=== PATIENT | female | born 1940 | race Caucasian/White ===

== ENCOUNTER 2018-03-31 08:58 | Outpatient (CLI) | payer MEDICARE | END 2018-03-31 08:59 | disposition home or self-care (01) | LOC: BICMAMMO 08:58 | PROVIDERS: ATTEND Family Medicine | DX: Z12.31 Encounter for screening mammogram for malignant neoplasm of breast (principal); Z80.3 Family history of malignant neoplasm of breast; R92.1 Mammographic calcification found on diagnostic imaging of breast | CPT/HCPCS: 77063; 77067 ==

== ENCOUNTER 2022-01-23 08:51 | Inpatient (IN) | payer MEDICARE ==
[2022-01-23 09:40] LABS: Bilirubin Negative (Negative); Blood, Urine Negative (Negative); Clarity Clear (Clear); Glucose, Urine (Dipstick) Normal (Negative); Ketone, Urine Negative (Negative); Leukocyte Negative Leu/uL (Negative); Nitrite Negative (Negative); Protein, Urine (Dipstick) Negative (Neg-Trace); Specific Gravity, Urine 1.013 (1.002-1.036); Urobilinogen Normal mg/dL (Less than 2)
[2022-01-23 09:42] LABS: #Lymphocytes 0.8 thou/uL (1.20-3.40); #Monocytes 1.5 thou/uL (0.11-0.59); #Neutrophils 9.4 thou/uL (1.40-6.50); %Basophils 0.1 % (0.0-1.0); %Eosinophils 0.1 % (0.0-10.0); %Lymphocytes 6.9 % (21.0-51.0); %Neutrophils 79.8 % (42.0-75.0); Hemoglobin 12.6 g/dL (12.0-16.0); Mean Corpuscular Hemoglobin 31.4 pg (27.0-31.0); Mean Corpuscular Volume 92.2 fL (78.0-98.0); Mean Platelet Volume 7.4 fL (7.4-10.4); Platelet Count 238 thou/uL (130-400); RBC Distribution Width 11.4 % (11.5-14.5); Red Blood Cell (RBC) Count 4.03 mill/uL (4.20-5.40); White Blood Cell (WBC) Count 11.8 thou/uL (4.8-10.8)
[2022-01-23 10:04] LABS: ALT (SGPT) 19 U/L (8-55); AST (SGOT) 39 U/L (5-34); Albumin 4.5 g/dL (3.4-4.8); Alkaline Phosphatase 87 U/L (40-110); Anion Gap 14 mmol/L (10-20); BUN (Urea Nitrogen) 15 mg/dL (9.8-20.1); Bilirubin, Total 0.7 mg/dL (0.2-1.2); CK (CPK) 1493 U/L (29-168); Calc. Creatinine Clearance 0 mL/min (70-130); Calcium 9.8 mg/dL (7.8-10.44); Carbon Dioxide 30 mmol/L (23-31); Chloride 86 mmol/L (98-107); Estimated GFR 67; Globulin 2.6 g/dL (2.4-3.5); Glucose 115 mg/dL (83-110); Potassium 3.2 mmol/L (3.5-5.1); Protein, Total 7.1 g/dL (5.8-8.1); Sodium 127 mmol/L (136-145)
[2022-01-23] MEDS ORDERED: Potassium Chloride 20 MEQ TAB ONE (10:29)
[2022-01-23 11:38] LABS: SARS-CoV-2 NAA Rapid Test Not Detected (NotDetected)
[2022-01-23] MEDS ORDERED: hydrALAZINE 20 MG/ML VIAL SLOW IVP PRN (12:53)
[2022-01-23] MEDS ORDERED: Acetaminophen 325 MG TAB PO PRN (12:57)
[2022-01-23] MEDS ORDERED: Ondansetron ODT 4 MG TAB PO PRN (12:57)
[2022-01-23] MEDS ORDERED: Lactated Ringer's 1,000 ML IV SCH ×2 (13:00)
[2022-01-23] MEDS ORDERED: Electrolyte Replacement Protocol 1 EACH FS SCH (13:00)
[2022-01-23 15:08] VITALS: BMI 28.4
[2022-01-23] MEDS: Lactated Ringer's 1,000 ML IV SCH (15:14)
[2022-01-23] MEDS ORDERED: GUAIFENESIN SF SOLN 200 MG/10 ML UDCUP PO PRN ×2 (18:28→18:47)
[2022-01-23] MEDS ORDERED: Atorvastatin Calcium 10 MG TAB PO SCH (21:00)
[2022-01-23] MEDS ORDERED: Donepezil HCl 10 MG TAB PO SCH (21:00)
[2022-01-24] MEDS: Lactated Ringer's 1,000 ML IV SCH ×3 (01:22→21:07)
[2022-01-24 07:25] LABS: Hemoglobin 11.4 g/dL (12.0-16.0); Mean Corpuscular HGB CONC 33.3 g/dL (32.0-36.0); Mean Corpuscular Hemoglobin 31.2 pg (27.0-31.0); Mean Corpuscular Volume 93.7 fL (78.0-98.0); Mean Platelet Volume 7.8 fL (7.4-10.4); Platelet Count 232 thou/uL (130-400); RBC Distribution Width 11.6 % (11.5-14.5); Red Blood Cell (RBC) Count 3.66 mill/uL (4.20-5.40); White Blood Cell (WBC) Count 6.9 thou/uL (4.8-10.8)
[2022-01-24 07:32] LABS: CK (CPK) 1276 U/L (29-168); Magnesium 1.9 mg/dL (1.6-2.6)
[2022-01-24] MEDS ORDERED: Magnesium 2 GM/50 ML(in water) 2 GM in Premix Bag 1 BAG IVPB SCH (09:00)
[2022-01-24 09:31] LABS: Band 1 % (5-11); Eosinophils 1 % (0-10); Lymphocytes 18 % (21-51); MDiff Complete? YES; Monocytes 14 % (0-10); Neutrophil 66 % (42-75); RBC Morphology Normal
[2022-01-24] MEDS: Lorazepam 0.5 MG TAB PO PRN ×2 (12:59→22:22)
[2022-01-24 13:28] LABS: Phosphorus 2.7 mg/dL (2.3-4.7)
[2022-01-24 13:30] LABS: Anion Gap 12 mmol/L (10-20); BUN (Urea Nitrogen) 12 mg/dL (9.8-20.1); Calc. Creatinine Clearance 72 mL/min (70-130); Calcium 8.9 mg/dL (7.8-10.44); Carbon Dioxide 31 mmol/L (23-31); Chloride 90 mmol/L (98-107); Estimated GFR 79; Glucose 84 mg/dL (83-110); Potassium 3.2 mmol/L (3.5-5.1); Sodium 130 mmol/L (136-145)
[2022-01-24] MEDS ORDERED: Potassium Chloride 20 MEQ TAB PO SCH (15:45)
[2022-01-24] MEDS ORDERED: OLANZapine 2.5 MG TAB PO SCH (16:45)
[2022-01-24] MEDS ORDERED: Folic Acid 1 MG TAB PO SCH (21:00)
[2022-01-24] MEDS ORDERED: Lorazepam 0.5 MG TAB PO SCH (21:00)
[2022-01-24] MEDS ORDERED: Cyanocobalamin (Vitamin B-12) 1,000 MCG TAB PO SCH (21:00)
[2022-01-24] MEDS ORDERED: traZODone HCl 50 MG TAB PO SCH (21:00)
[2022-01-25] MEDS: Lactated Ringer's 1,000 ML IV SCH ×2 (04:01→15:04)
[2022-01-25] MEDS: Lorazepam 0.5 MG TAB PO PRN (04:01)
[2022-01-25] MEDS ORDERED: OLANZapine 10 MG VIAL IM SCH (05:45)
[2022-01-25] MEDS ORDERED: Sterile Water 10 ML VIAL FS PRN (05:45)
[2022-01-25 10:28] LABS: CK (CPK) 815 U/L (29-168); Phosphorus 2.7 mg/dL (2.3-4.7)
[2022-01-25 10:29] LABS: ALT (SGPT) 22 U/L (8-55); AST (SGOT) 46 U/L (5-34); Albumin 3.9 g/dL (3.4-4.8); Alkaline Phosphatase 75 U/L (40-110); Anion Gap 12 mmol/L (10-20); BUN (Urea Nitrogen) 8 mg/dL (9.8-20.1); Bilirubin, Total 0.6 mg/dL (0.2-1.2); Calc. Creatinine Clearance 76 mL/min (70-130); Carbon Dioxide 29 mmol/L (23-31); Chloride 97 mmol/L (98-107); Estimated GFR 84; Globulin 2.6 g/dL (2.4-3.5); Glucose 89 mg/dL (83-110); Potassium 3.3 mmol/L (3.5-5.1); Protein, Total 6.5 g/dL (5.8-8.1); Sodium 135 mmol/L (136-145)
[2022-01-25 10:50] LABS: Band 4 % (5-11); Eosinophils 3 % (0-10); Hemoglobin 12.3 g/dL (12.0-16.0); Lymphocytes 15 % (21-51); MDiff Complete? YES; Mean Corpuscular HGB CONC 32.4 g/dL (32.0-36.0); Mean Corpuscular Hemoglobin 30.5 pg (27.0-31.0); Mean Corpuscular Volume 94.3 fL (78.0-98.0); Mean Platelet Volume 7.3 fL (7.4-10.4); Monocytes 20 % (0-10); Neutrophil 58 % (42-75); Platelet Count 260 thou/uL (130-400); Platelet Morphology Comment Appears Adequate; Polychromasia SLIGHT = 2-3 cells (100X) (0-2/hpf); RBC Distribution Width 11.6 % (11.5-14.5); Red Blood Cell (RBC) Count 4.01 mill/uL (4.20-5.40); White Blood Cell (WBC) Count 7.4 thou/uL (4.8-10.8)
[2022-01-25] MEDS ORDERED: Potassium Chloride 20 MEQ TAB PO SCH ×2 (11:15→12:00)
[2022-01-25] MEDS: Potassium Chloride 20 MEQ TAB PO SCH ×2 (11:39→11:55)
[2022-01-25 15:56] VITALS: BP 153/94; TEMP 98
== END 2022-01-25 18:41 | DRG 884 ==
LOC: ERS 08:51 → ERHOLD 10:49 → T4-B 14:55 → OBSVTOIN 01-24 10:18
PROVIDERS: ADMIT Internal Medicine; ATTEND Internal Medicine
DX: F03.91 Unspecified dementia, unspecified severity, with behavioral disturbance (principal); G93.41 Metabolic encephalopathy; M62.82 Rhabdomyolysis; E87.1 Hypo-osmolality and hyponatremia; Z20.822 Contact with and (suspected) exposure to COVID-19; S42.031A Displaced fracture of lateral end of right clavicle, initial encounter for closed fracture; I10 Essential (primary) hypertension; E78.5 Hyperlipidemia, unspecified; F41.9 Anxiety disorder, unspecified; F32.A Depression, unspecified; E86.0 Dehydration; Z96.653 Presence of artificial knee joint, bilateral; E87.6 Hypokalemia; W19.XXXA Unspecified fall, initial encounter; R29.6 Repeated falls; Z91.81 History of falling; Z98.890 Other specified postprocedural states; Z90.710 Acquired absence of both cervix and uterus; Z79.899 Other long term (current) drug therapy
CPT/HCPCS: 36415; 70450; 70486; 71045; 72125; 80048; 80053; 81003; 82140; 82550; 83735; 83930; 83935; 84100; 84300; 84443; 84484; 85025; 87040; 93005; 94760; G0378; J2358; J3475; J7120

== ENCOUNTER 2022-02-21 08:58 | Inpatient (IN) | payer MEDICARE ==
[~2022-02-21 08:58] MED LIST: Iopamidol-370 76% 500 ML 1 ML ONE
[2022-02-21 09:53] LABS: #Basophils 0.1 thou/uL (0.0-0.2); #Eosinphils 0.1 thou/uL (0.0-0.7); #Lymphocytes 1.3 thou/uL (1.20-3.40); #Monocytes 0.6 thou/uL (0.11-0.59); #Neutrophils 3.5 thou/uL (1.40-6.50); %Eosinophils 2.6 % (0.0-10.0); %Monocytes 10.6 % (0.0-10.0); %Neutrophils 61.8 % (42.0-75.0); Hemoglobin 12.5 g/dL (12.0-16.0); Mean Corpuscular HGB CONC 32.4 g/dL (32.0-36.0); Mean Corpuscular Hemoglobin 30.4 pg (27.0-31.0); Mean Corpuscular Volume 93.8 fL (78.0-98.0); Mean Platelet Volume 7.5 fL (7.4-10.4); Platelet Count 311 thou/uL (130-400); RBC Distribution Width 11.6 % (11.5-14.5); Red Blood Cell (RBC) Count 4.12 mill/uL (4.20-5.40); White Blood Cell (WBC) Count 5.6 thou/uL (4.8-10.8)
[2022-02-21 10:10] LABS: ALT (SGPT) 13 U/L (8-55); AST (SGOT) 21 U/L (5-34); Albumin 4.1 g/dL (3.4-4.8); Alkaline Phosphatase 118 U/L (40-110); Anion Gap 18 mmol/L (10-20); BUN (Urea Nitrogen) 33 mg/dL (9.8-20.1); Bilirubin, Total 0.4 mg/dL (0.2-1.2); Calc. Creatinine Clearance 0 mL/min (70-130); Calcium 9.5 mg/dL (7.8-10.44); Carbon Dioxide 30 mmol/L (23-31); Chloride 94 mmol/L (98-107); Estimated GFR 36; Globulin 2.7 g/dL (2.4-3.5); Glucose 93 mg/dL (83-110); Potassium 3.6 mmol/L (3.5-5.1); Protein, Total 6.8 g/dL (5.8-8.1); Sodium 138 mmol/L (136-145)
[2022-02-21 10:24] LABS: Bilirubin Negative (Negative); Blood, Urine Negative (Negative); Clarity Clear (Clear); Glucose, Urine (Dipstick) Normal (Negative); Ketone, Urine Negative (Negative); Leukocyte 500 Leu/uL (Negative); Nitrite Negative (Negative); Protein, Urine (Dipstick) 20 mg/dL (Neg-Trace); RBC/HPF 0-3 HPF (0-3); Specific Gravity, Urine 1.022 (1.002-1.036); Squamous Epithelial 0-3 HPF (0-3); Urobilinogen Normal mg/dL (Less than 2); WBC/HPF 21-50 HPF (0-3); pH, Urine 6.5 (5.0-9.0)
[2022-02-21 10:29] LABS: Bacteria/HPF 1+ HPF (None Seen)
[2022-02-21] MEDS ORDERED: cefTRIAXone\\ROCEPHIN 1 GM VIAL ONE (11:21)
[2022-02-21] MEDS ORDERED: Ondansetron PF 4 MG/2 ML Vial IVP PRN (12:11)
[2022-02-21 15:05] LABS: SARS-CoV-2 NAA Rapid Test DETECTED (NotDetected)
[2022-02-21 16:03] VITALS: BMI 25.9
[2022-02-21] MEDS: Lactated Ringer's 1,000 ML IV SCH (17:37)
[2022-02-21] MEDS: Atorvastatin Calcium 10 MG TAB PO SCH (20:32)
[2022-02-21] MEDS: Folic Acid 1 MG TAB PO SCH (20:32)
[2022-02-21] MEDS: Donepezil HCl 10 MG TAB PO SCH (20:32)
[2022-02-21] MEDS ORDERED: Famotidine 20 MG TAB PO SCH (21:00)
[2022-02-22] MEDS: Lorazepam 0.5 MG TAB PO PRN ×2 (00:20→12:37)
[2022-02-22] MEDS: Lactated Ringer's 1,000 ML IV SCH ×2 (00:25→13:49)
[2022-02-22] MEDS: Acetaminophen 325 MG TAB PO PRN (02:18)
[2022-02-22 07:40] LABS: Hemoglobin 11.6 g/dL (12.0-16.0); Mean Corpuscular HGB CONC 32.9 g/dL (32.0-36.0); Mean Corpuscular Hemoglobin 30.7 pg (27.0-31.0); Mean Corpuscular Volume 93.3 fL (78.0-98.0); Mean Platelet Volume 7.8 fL (7.4-10.4); Platelet Count 273 thou/uL (130-400); RBC Distribution Width 11.7 % (11.5-14.5); Red Blood Cell (RBC) Count 3.79 mill/uL (4.20-5.40); White Blood Cell (WBC) Count 5.9 thou/uL (4.8-10.8)
[2022-02-22 08:03] LABS: Anion Gap 15 mmol/L (10-20); BUN (Urea Nitrogen) 20 mg/dL (9.8-20.1); Calc. Creatinine Clearance 50 mL/min (70-130); Calcium 9.4 mg/dL (7.8-10.44); Carbon Dioxide 29 mmol/L (23-31); Chloride 96 mmol/L (98-107); Estimated GFR 56; Glucose 90 mg/dL (83-110); Potassium 3.4 mmol/L (3.5-5.1); Sodium 137 mmol/L (136-145)
[2022-02-22] MEDS: Enoxaparin Sodium 30 MG/0.3 ML SYRINGE SC SCH (08:15)
[2022-02-22] MEDS: Famotidine 20 MG TAB PO SCH (08:16)
[2022-02-22] MEDS ORDERED: Potassium Chloride 20 MEQ TAB PO SCH ×2 (09:45→17:00)
[2022-02-22] MEDS: cefTRIAXone\\ROCEPHIN 1 GM in Sodium Chloride 0.9% 100 ML IVPB SCH (11:15)
[2022-02-22] MEDS: Donepezil HCl 10 MG TAB PO SCH (20:25)
[2022-02-22] MEDS: Atorvastatin Calcium 10 MG TAB PO SCH (20:25)
[2022-02-22] MEDS: Folic Acid 1 MG TAB PO SCH (20:25)
[2022-02-23] MEDS: Lactated Ringer's 1,000 ML IV SCH ×2 (04:35→15:41)
[2022-02-23 06:57] LABS: Hemoglobin 12.1 g/dL (12.0-16.0); Mean Corpuscular HGB CONC 32.5 g/dL (32.0-36.0); Mean Corpuscular Hemoglobin 30.6 pg (27.0-31.0); Mean Corpuscular Volume 94.2 fL (78.0-98.0); Mean Platelet Volume 7.8 fL (7.4-10.4); Platelet Count 269 thou/uL (130-400); RBC Distribution Width 11.7 % (11.5-14.5); Red Blood Cell (RBC) Count 3.96 mill/uL (4.20-5.40); White Blood Cell (WBC) Count 4.7 thou/uL (4.8-10.8)
[2022-02-23 07:23] LABS: Anion Gap 14 mmol/L (10-20); BUN (Urea Nitrogen) 10 mg/dL (9.8-20.1); Calc. Creatinine Clearance 61 mL/min (70-130); Calcium 9.5 mg/dL (7.8-10.44); Carbon Dioxide 28 mmol/L (23-31); Chloride 104 mmol/L (98-107); Estimated GFR 71; Glucose 86 mg/dL (83-110); Magnesium 1.7 mg/dL (1.6-2.6); Potassium 4.1 mmol/L (3.5-5.1); Sodium 142 mmol/L (136-145)
[2022-02-23 08:02] LABS: Eosinophils 1 % (0-10); Lymphocytes 31 % (21-51); MDiff Complete? YES; Monocytes 13 % (0-10); Neutrophil 53 % (42-75); Platelet Morphology Comment Appears Adequate; RBC Morphology Normal; Reactive Lymphocytes 1 % (0-10)
[2022-02-23] MEDS: Famotidine 20 MG TAB PO SCH (08:58)
[2022-02-23] MEDS: Enoxaparin Sodium 30 MG/0.3 ML SYRINGE SC SCH (08:58)
[2022-02-23] MEDS: cefTRIAXone\\ROCEPHIN 1 GM in Sodium Chloride 0.9% 100 ML IVPB SCH (11:29)
[2022-02-23] MEDS: Donepezil HCl 10 MG TAB PO SCH (20:26)
[2022-02-23] MEDS: Atorvastatin Calcium 10 MG TAB PO SCH (20:26)
[2022-02-23] MEDS: Folic Acid 1 MG TAB PO SCH (20:26)
[2022-02-24] MEDS: Acetaminophen 325 MG TAB PO PRN ×2 (01:18→08:59)
[2022-02-24 06:10] LABS: #Basophils 0.1 thou/uL (0.0-0.2); #Eosinphils 0.6 thou/uL (0.0-0.7); #Lymphocytes 2.2 thou/uL (1.20-3.40); #Monocytes 0.7 thou/uL (0.11-0.59); #Neutrophils 2.8 thou/uL (1.40-6.50); %Basophils 1.1 % (0.0-1.0); %Eosinophils 8.7 % (0.0-10.0); %Lymphocytes 34.6 % (21.0-51.0); %Monocytes 11.5 % (0.0-10.0); %Neutrophils 44.1 % (42.0-75.0); Hemoglobin 12.4 g/dL (12.0-16.0); Mean Corpuscular Hemoglobin 31.1 pg (27.0-31.0); Mean Corpuscular Volume 94.4 fL (78.0-98.0); Mean Platelet Volume 7.7 fL (7.4-10.4); Platelet Count 250 thou/uL (130-400); RBC Distribution Width 11.8 % (11.5-14.5); Red Blood Cell (RBC) Count 3.99 mill/uL (4.20-5.40); White Blood Cell (WBC) Count 6.3 thou/uL (4.8-10.8)
[2022-02-24 06:26] LABS: Anion Gap 18 mmol/L (10-20); BUN (Urea Nitrogen) 11 mg/dL (9.8-20.1); Calc. Creatinine Clearance 61 mL/min (70-130); Calcium 9.5 mg/dL (7.8-10.44); Carbon Dioxide 19 mmol/L (23-31); Chloride 107 mmol/L (98-107); Estimated GFR 70; Glucose 74 mg/dL (83-110); Potassium 4.7 mmol/L (3.5-5.1); Sodium 139 mmol/L (136-145)
[2022-02-24] MEDS: Lactated Ringer's 1,000 ML IV SCH ×2 (06:59→20:01)
[2022-02-24] MEDS: Famotidine 20 MG TAB PO SCH (08:58)
[2022-02-24] MEDS: Enoxaparin Sodium 30 MG/0.3 ML SYRINGE SC SCH (08:58)
[2022-02-24] MEDS: Losartan 25 MG TAB PO SCH (09:03)
[2022-02-24] MEDS: cefTRIAXone\\ROCEPHIN 1 GM in Sodium Chloride 0.9% 100 ML IVPB SCH (12:30)
[2022-02-24] MEDS: Lorazepam 0.5 MG TAB PO PRN (16:51)
[2022-02-24] MEDS: Atorvastatin Calcium 10 MG TAB PO SCH (20:01)
[2022-02-24] MEDS: Donepezil HCl 10 MG TAB PO SCH (20:01)
[2022-02-24] MEDS: Folic Acid 1 MG TAB PO SCH (20:01)
[2022-02-25 06:30] LABS: Anion Gap 18 mmol/L (10-20); BUN (Urea Nitrogen) 10 mg/dL (9.8-20.1); Calc. Creatinine Clearance 59 mL/min (70-130); Calcium 9.4 mg/dL (7.8-10.44); Carbon Dioxide 19 mmol/L (23-31); Chloride 107 mmol/L (98-107); Estimated GFR 67; Glucose 91 mg/dL (83-110); Potassium 4.8 mmol/L (3.5-5.1); Sodium 139 mmol/L (136-145)
[2022-02-25] MEDS: Famotidine 20 MG TAB PO SCH (09:10)
[2022-02-25] MEDS: Enoxaparin Sodium 30 MG/0.3 ML SYRINGE SC SCH (09:10)
[2022-02-25] MEDS: Losartan 25 MG TAB PO SCH (09:10)
[2022-02-25] MEDS: Lactated Ringer's 1,000 ML IV SCH (09:18)
[2022-02-25] MEDS: cefTRIAXone\\ROCEPHIN 1 GM in Sodium Chloride 0.9% 100 ML IVPB SCH (11:46)
[2022-02-25 11:56] VITALS: BP 161/84; TEMP 98
== END 2022-02-25 14:28 | disposition home or self-care (01) | DRG 70 ==
LOC: SUATTDRO 08:58 → ERS 08:58 → ERHOLD 12:03 → T4-A 14:50
PROVIDERS: ADMIT Internal Medicine; ATTEND Internal Medicine
PROC: 8E0ZXY6 Isolation (ICD-10-PCS; principal; 2022-02-21)
DX: G93.41 Metabolic encephalopathy (principal); U07.1 COVID-19; N39.0 Urinary tract infection, site not specified; N17.9 Acute kidney failure, unspecified; I10 Essential (primary) hypertension; F03.90 Unspecified dementia, unspecified severity, without behavioral disturbance, psychotic disturbance, mood disturbance, and anxiety; E78.2 Mixed hyperlipidemia; F41.9 Anxiety disorder, unspecified; F32.A Depression, unspecified; Z96.653 Presence of artificial knee joint, bilateral; R29.6 Repeated falls; Z91.81 History of falling; Z78.1 Physical restraint status; Z79.899 Other long term (current) drug therapy; Z98.890 Other specified postprocedural states; Z90.710 Acquired absence of both cervix and uterus
CPT/HCPCS: 36415; 70450; 71045; 74177; 80048; 80053; 81003; 81015; 83735; 85025; 85027; 87086; 93005; 96365; 96366; J0696; J1650; J3490; J7120; Q9967

== ENCOUNTER 2023-05-13 09:44 | Emergency (ER) | payer MEDICARE ==
[2023-05-13 10:37] LABS: #Basophils 0.1 thou/uL (0.0-0.2); #Eosinphils 0.1 thou/uL (0.0-0.7); #Neutrophils 4.5 thou/uL (1.40-6.50); %Basophils 0.8 % (0.0-1.0); %Eosinophils 1.8 % (0.0-10.0); %Lymphocytes 22.2 % (21.0-51.0); %Monocytes 13.2 % (0.0-10.0); %Neutrophils 61.2 % (42.0-75.0); Hematocrit 37.5 % (36.0-47.0); Hemoglobin 12.2 g/dL (12.0-16.0); Mean Corpuscular HGB CONC 32.5 g/dL (32.0-36.0); Mean Corpuscular Volume 95.2 fl (78.0-98.0); Mean Platelet Volume 10.3 fL (7.4-10.4); Platelet Count 237 10x3/uL (130-400); Red Blood Cell (RBC) Count 3.94 mill/uL (4.20-5.40); White Blood Cell (WBC) Count 7.3 10x3/uL (4.8-10.8)
[2023-05-13 11:05] LABS: Troponin I Less than 0.010 ng/mL (< 0.028)
[2023-05-13 11:15] LABS: ALT (SGPT) 16 U/L (8-55); AST (SGOT) 22 U/L (5-34); Albumin 4.1 g/dL (3.4-4.8); Alkaline Phosphatase 92 U/L (40-110); Anion Gap 11 mmol/L (10-20); BUN (Urea Nitrogen) 30 mg/dL (9.8-20.1); Bilirubin, Total 0.3 mg/dL (0.2-1.2); Calc. Creatinine Clearance 0 mL/min (70-130); Calcium 9.4 mg/dL (7.8-10.44); Carbon Dioxide 31 mmol/L (23-31); Chloride 102 mmol/L (98-107); Estimated GFR 39; Globulin 2.7 g/dL (2.4-3.5); Glucose 82 mg/dL (83-110); Lipase 13 U/L (8-78); Potassium 4.6 mmol/L (3.5-5.1); Protein, Total 6.8 g/dL (5.8-8.1); Sodium 139 mmol/L (136-145)
[2023-05-13 12:27] LABS: Bacteria/HPF None Seen HPF (None Seen); Bilirubin Negative (Negative); Blood, Urine Negative (Negative); CAUTI Indications for Culture Alt mental st,lethar; Clarity Clear (Clear); Glucose, Urine (Dipstick) Normal (Negative); Ketone, Urine Negative (Negative); Leukocyte Negative Leu/uL (Negative); Nitrite Negative (Negative); Protein, Urine (Dipstick) Negative (Neg-Trace); RBC/HPF 0-3 HPF (0-3); Squamous Epithelial 0-3 HPF (0-3); Urobilinogen Normal mg/dL (Less than 2); WBC/HPF 0-3 HPF (0-3)
[2023-05-13 12:30] LABS: SARS-CoV-2 NAA Rapid Test Not Detected (NotDetected)
[2023-05-13 12:30] LABS: Urine Culture Reflex No No
== END 2023-05-13 15:12 | disposition home or self-care (01) ==
LOC: ERS 09:44
DX: E86.0 Dehydration (principal); F03.90 Unspecified dementia, unspecified severity, without behavioral disturbance, psychotic disturbance, mood disturbance, and anxiety; I10 Essential (primary) hypertension; Z20.822 Contact with and (suspected) exposure to COVID-19
CPT/HCPCS: 0240U; 71045; 80053; 81001; 83605; 83690; 83880; 84484; 85025; 87040; 87077; 87149 ×2; 93005; 87186; 96360; 96361